=== PATIENT | male | born 1985 | race Caucasian/White ===

== ENCOUNTER 2022-11-08 15:35 | Emergency (ER) | payer SELFPAY ==
[~2022-11-08] VITALS: Ht 185.4 cm; Wt 90.0 kg
[2022-11-08] MEDS ORDERED: LORazepam 2 mg/ml vial ONE (15:50)
[2022-11-08 15:55] VITALS: BP 124/77; PULSE 75; RESP 18; TEMP 97.3; O2SAT 96
[2022-11-08] MEDS ORDERED: levetiracetam inj 1,000 MG in normal saline 100ml IV soln 90 ML IV STA (16:03)
[2022-11-08] MEDS ORDERED: levetiracetam inj 1,000 MG in normal saline 100ml IV soln 100 ML IV STA (16:13)
--- NOTE | 2022-11-08 16:59 | NUR ---
ativan was not given cause ems gave versed
[2022-11-08 17:03] LABS: BASOPHILS % (AUTO) 0.3 % (0-1); EOSINOPHILS % (AUTO) 0.3 % (0-6); HEMATOCRIT 36.7 % (42.0-52.0); HEMOGLOBIN 12.4 g/dl (14.0-17.9); LYMPHOCYTES # (AUTO) 0.9 X10'3 (1.1-4.8); LYMPHOCYTES % (AUTO) 15.4 % (21-51); MEAN CORPUSCULAR HEMOGLOBIN 31.6 PG (27.0-31.0); MEAN CORPUSCULAR HGB CONC 33.8 g/dL (33.0-36.5); MEAN CORPUSCULAR VOLUME 93.4 FL (78-98); MEAN PLATELET VOLUME 9.1 FL (7.4-10.4); MONOCYTES # (AUTO) 0.6 X10'3 (0-0.9); MONOCYTES % (AUTO) 10.8 % (2-12); NEUTROPHILS # (AUTO) 4.4 X10'3 (1.8-7.7); NEUTROPHILS % (AUTO) 73.2 % (42-75); PLATELET COUNT 172 X10'3 (140-440); RED BLOOD COUNT 3.93 X10'6 (4.70-6.10); RED CELL DISTRIBUTION WIDTH 12.6 % (11.5-14.5)
[2022-11-08 17:27] LABS: ALANINE AMINOTRANSFERASE 55 U/L (12-78); ALBUMIN 2.8 G/DL (3.4-5.0); ALBUMIN/GLOBULIN RATIO 0.6 (1.1-1.5); ALKALINE PHOSPHATASE 90 IU/L (46-116); ANION GAP 13 (8-16); ASPARTATE AMINO TRANSFERASE 69 U/L (10-37); BILIRUBIN,TOTAL 1.1 MG/DL (0.1-1.0); BLOOD UREA NITROGEN 18 MG/DL (7-18); BUN/CREATININE RATIO 20.2 (10.0-20.0); CALCIUM 8.4 MG/DL (8.5-10.1); CHLORIDE 80 MMOL/L (99-107); CREATININE 0.89 MG/DL (0.60-1.10); ETHANOL 129 MG/DL (<10); GLUCOSE 90 MG/DL (70-104); MAGNESIUM 1.8 MG/DL (1.5-2.4); TOTAL CARBON DIOXIDE 25.8 MMOL/L (24-32); TOTAL PROTEIN 7.5 G/DL (6.4-8.2); eCRCL 127 ML/MIN; eGFR > 90 ML/MIN
--- NOTE | 2022-11-08 17:29 | NUR ---
pt wanted to leave ama. he signed the ama form. pt dc his IV himself.
[2022-11-08 17:36] LABS: SODIUM 119 MMOL/L (135-145)
[2022-11-08 17:37] LABS: POTASSIUM 2.3 MMOL/L (3.5-5.1)
== END 2022-11-08 17:34 | disposition left against medical advice (07) ==
LOC: ER 15:36
DX: G40.901 Epilepsy, unspecified, not intractable, with status epilepticus (principal); Z72.89 Other problems related to lifestyle
CPT/HCPCS: 36415; 71045; 80053; 80320; 83605; 83735; 84145; 84443; 84484; 85025; 87040; 93005; 96365; 99291; J1953; J2060; J3490; 99285